=== PATIENT | male | born 1940 | race Caucasian/White ===

== ENCOUNTER 2017-07-31 10:41 | Emergency (ER) | payer MEDICARE, BC ==
[2017-07-31] MEDS ORDERED: Sodium Chloride 0.9% 10 ML Syringe FLUSH PRN (10:53)
[2017-07-31] MEDS ORDERED: HYDROmorphone 1 MG/ML Syringe IVPUSH ONE (10:54)
[2017-07-31] MEDS ORDERED: Ondansetron 4 MG/2 ML SDV IV ONE (11:21)
[2017-07-31 11:33] LABS: CHLORIDE,CL 99 mmol/L (101-111); SODIUM,NA 136 mmol/L (135-145)
[2017-07-31] MEDS ORDERED: Iopamidol 612 MG/ML 100 ML Bottle IVPUSH ONE (11:44)
--- NOTE | 2017-07-31 12:02 | EDM.PDOC ---
ED HPI GENERAL MEDICAL PROBLEM - General Chief Complaint: Chest Pain Stated Complaint: SHARP PAIN R SIDE. [phone] Time Seen by Provider: 07/31/17 10:45 Source of Information: Reports: Patient, Family, RN, RN Notes Reviewed History Limitations: Reports: No Limitations - History of Present Illness INITIAL COMMENTS - FREE TEXT/NARRATIVE: Pt presents to the ER with his with c/o severe right upper quadrant pain. He states he awoke abruptly about midnight with the sharp pain which he rates a 10/10. He denies recent fever, N/V/D. He states he is always cold. He states he has a chronic cough as he is a smoker. Pt states he still has his gallbladder and appendix. Onset: Today, Sudden Onset Time: 00:00 Location: Reports: Chest, Abdomen Quality: Reports: Stabbing, Throbbing Severity: Severe Improves with: Reports: None Worsens with: Reports: Breathing, Movement Associated Symptoms: Reports: No Other Symptoms Right Lower Chest Pain Score (Numeric/FACES): 8 - Related Data Allergies Allergy/AdvReac Type Severity Reaction Status Date / Time No Known Allergies Allergy Verified 07/14/14 00:31 Home Meds: Home Meds Aspirin [Ecotrin] 81 mg PO 07/22/13 [History] Clopidogrel [Plavix] 75 mg PO 07/22/13 [History] Hydrochlorothiazide 25 mg PO DAILY 07/22/13 [History] Multivitamin with Minerals [Multiple Vitamin] 1 tab PO DAILY 07/22/13 [History] Nitroglycerin [Nitrostat] 0.4 mg SL 07/22/13 [History] Omeprazole [Prilosec] 20 mg PO 07/22/13 [History] Pravastatin [Pravachol] 20 mg PO BEDTIME 07/22/13 [History] Valsartan [Diovan] 160 mg PO DAILY 07/22/13 [History] Social & Family History - Tobacco Use Smoking Status *Q: Current Every Day Smoker Years of Tobacco use: 50 Second Hand Smoke Exposure: No - Alcohol Use Days Per Week of Alcohol Use: 4 - Recreational Drug Use Recreational Drug Use: No ED ROS GENERAL - Review of Systems Review Of Systems: ROS reveals no pertinent complaints other than HPI. ED EXAM, GI/ABD - Physical Exam Exam: See Below Exam Limited By: No Limitations General Appearance: Alert, WD/WN, Moderate Distress Eyes: Bilateral: Normal Appearance, EOMI Ears: Normal External Exam, Hearing Grossly Normal Nose: Normal Inspection Throat/Mouth: Normal Inspection, Normal Voice, No Airway Compromise Head: Atraumatic, Normocephalic Neck: Normal Inspection, Supple, Non-Tender, Full Range of Motion Respiratory/Chest: No Respiratory Distress, No Accessory Muscle Use, Decreased Breath Sounds, Crackles (bases bilaterally) Cardiovascular: Normal Peripheral Pulses, Regular Rate, Rhythm GI/Abdominal Exam: Normal Bowel Sounds, Guarding, Tender (right upper quadrant) (Male) Exam: Deferred Rectal (Males) Exam: Deferred Back Exam: Normal Inspection, Decreased Range of Motion (with pain) Extremities: Normal Inspection, Normal Range of Motion, Non-Tender, No Pedal Edema, Normal Capillary Refill Neurological: Alert, Oriented, Normal Cognition, Normal Gait, Normal Reflexes, No Motor/Sensory Deficits Psychiatric: Normal Affect, Normal Mood Skin Exam: Warm, Dry, Intact, Normal Color, No Rash Lymphatic: No Adenopathy Course - Vital Signs Last Recorded V/S: Last Vital Signs Temp 98.7 F 07/31/17 12:25 Pulse 65 07/31/17 12:25 Resp 16 07/31/17 12:25 BP 145/73 H 07/31/17 12:25 Pulse Ox 92 L 07/31/17 12:25 - Orders/Labs/Meds Orders: Active Orders 24 hr Category Date Time Status Peripheral IV Care [RC] . DIRECTED Care 07/31/17 10:54 Active Peripheral IV Insertion Adult [OM.PC] Stat Oth 07/31/17 10:53 Ordered Labs: Laboratory Tests 07/31/17 07/31/17 07/31/17 Range/Units 11:06 11:06 11:06 WBC 7.3 (5.0-10.0) 10^3/uL RBC 3.98 L (4.6-6.2) 10^6/uL Hgb 12.8 L (14.0-18.0) g/dL Hct 36.8 L (40.0-54.0) % MCV 92.5 D (80-100) fL MCH 32.2 (27.0-34.0) pg MCHC 34.8 (33.0-35.0) g/dL Plt Count 236 (150-450) 10^3/uL Neut % (Auto) 76.6 H (42.2-75.2) % Lymph % (Auto) 12.9 L (20.5-50.1) % Bacon % (Auto) 9.6 H (2-8) % Eos % (Auto) 0.6 L (1.0-3.0) % Baso % (Auto) 0.3 (0.0-1.0) % PT 8.7 L (9.0-12.0) SEC INR 0.9 (0.9-1.2) Sodium 136 (135-145) mmol/L Potassium 4.2 (3.6-5.0) mmol/L Chloride 99 L (101-111) mmol/L Carbon Dioxide 25.0 (21.0-31.0) mmol/L Anion Gap 16.2 BUN 19 H (7-18) mg/dL Creatinine 0.9 (0.6-1.3) mg/dL Est Cr Clr Drug Dosing 69.44 mL/min Estimated GFR (MDRD) > 60 BUN/Creatinine Ratio 21.11 Glucose 99 (74-105) mg/dL Lactic Acid (0.5-2.2) mmol/L Calcium 9.5 (8.4-10.2) mg/dl Total Bilirubin 0.7 (0.2-1.0) mg/dL AST 41 (10-42) IU/L ALT 24 (10-60) IU/L Alkaline Phosphatase 71 (42-121) IU/L Total Protein 7.1 (6.7-8.2) g/dl Albumin 4.5 (3.2-5.5) g/dl Globulin 2.6 Albumin/Globulin Ratio 1.73 07/31/ Range/Units 11:06 WBC (5.0-10.0) 10^3/uL RBC (4.6-6.2) 10^6/uL Hgb (14.0-18.0) g/dL Hct (40.0-54.0) % MCV (80-100) fL MCH (27.0-34.0) pg MCHC (33.0-35.0) g/dL Plt Count (150-450) 10^3/uL Neut % (Auto) (42.2-75.2) % Lymph % (Auto) (20.5-50.1) % Bacon % (Auto) (2-8) % Eos % (Auto) (1.0-3.0) % Baso % (Auto) (0.0-1.0) % PT (9.0-12.0) SEC INR (0.9-1.2) Sodium (135-145) mmol/L Potassium (3.6-5.0) mmol/L Chloride (101-111) mmol/L Carbon Dioxide (21.0-31.0) mmol/L Anion Gap BUN (7-18) mg/dL Creatinine (0.6-1.3) mg/dL Est Cr Clr Drug Dosing mL/min Estimated GFR (MDRD) BUN/Creatinine Ratio Glucose (74-105) mg/dL Lactic Acid 1.1 (0.5-2.2) mmol/L Calcium (8.4-10.2) mg/dl Total Bilirubin (0.2-1.0) mg/dL AST (10-42) IU/L ALT (10-60) IU/L Alkaline Phosphatase (42-121) IU/L Total Protein (6.7-8.2) g/dl Albumin (3.2-5.5) g/dl Globulin Albumin/Globulin Ratio Meds: Medications Discontinued Medications Generic Name Dose Route Start Last Admin Trade Name Freq PRN Reason Stop Dose Admin Hydromorphone HCl 0.5 mg 07/31/17 10:54 07/31/17 11:21 Dilaudid IVPUSH 07/31/17 10:55 0.5 mg ONETIME ONE Administration Iopamidol 100 ml 07/31/17 11:44 07/31/17 12:06 Isovue-300 (61%) IVPUSH 07/31/17 11:45 100 ml ONETIME ONE Administration Ondansetron HCl 4 mg 07/31/17 11:21 07/31/17 11:28 Zofran IV 07/31/17 11:22 4 mg ONETIME ONE Administration Sodium Chloride 10 ml 07/31/17 10:53 07/31/17 11:22 Saline Flush FLUSH 10 ml ASDIRECTED PRN Administration Keep Vein Open - Radiology Interpretation Free Text/Narrative:: CT of abdomen/chest/pelvis w/ contrast: 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 Sigmoid diverticulosis. Bilateral renal cysts. Fatty liver. RLL atelectasis. No CT chest sbnormality or acute new intraperitoneal abnormality since Jul 2012 exam See rad report Departure - Departure Time of Disposition: 14:10 Disposition: Home, Self-Care 01 Condition: Fair Clinical Impression: Diverticulitis, Atelectasis of right lung - Discharge Information Instructions: Diverticulitis, [id number], Atelectasis, Adult, Diverticulosis Referrals: Alix Payne PA [Primary Care Provider] - Forms: ED Department Discharge Additional Instructions: Splint the right side with movement Cough and deep breathe as often as possible. RX: Cipro and Metronidazole Make an appointment to see Dr. Norris Low residue diet, drink plenty of fluids - My Orders Last 24 Hours: My Active Orders 07/31/17 10:53 Peripheral IV Insertion Adult [OM.PC] Stat 07/31/17 10:54 Peripheral IV Care [RC] . DIRECTED - Assessment/Plan Last 24 Hours: My Active Orders 07/31/17 10:53 Peripheral IV Insertion Adult [OM.PC] Stat 07/31/17 10:54 Peripheral IV Care [RC] . DIRECTED
--- NOTE | 2017-07-31 13:30 | CT ---
CLINICAL HISTORY: 77-year-old hypertensive 155 pound male smoker with severe right chest and upper ab dominal pain reported on previous CT scan abdomen July 2012 to have "multilevel lumbar disc disea se, benign cysts lower pole both kidneys, sigmoid diverticulosis and prostatic calcifications". SCAN TECHNIQUE: Volume acquisition of data from the chest, abdomen and pelvis obtained during/after t he intravenous administration 100 cc nonionic Isovue contrast (3 cc/s via injector) while the patient was lying supine on the Siemens multislice CT scanner [facility]. All data archived in the PACS system for storage, reformatting and study. INTERPRETATION: 1. Multilevel lower cervical, lower thoracic and mid/lower lumbar disc disease with associated hypert rophic arthritic changes. No pathologic skeletal lesion, fracture or spondylolisthesis. Radicular brittney n? No right rib fractures or pathologic skeletal lesion. 2. Peribronchial "cuffing", generalized mild air trapping, and symmetric prominence of the proximal p ulmonary artery segments characteristic of reactive airway disease and possible early pulmonary arter y hypertension. Atelectasis posteriorly RLL. 3. Normal cardiac silhouette and thoracic aorta. No pericardial effusion. No alveolar edema or pleur al effusions. 4. Fatty liver. No intrahepatic mass lesion. Normal gallbladder, stomach, spleen, atrophic pancreas a nd adrenal glands. 5. Solitary 2.8 cm diameter lower pole cyst right kidney; larger 3.3 cm diameter lower pole cyst cont ralateral left kidney (another 1.8 cm diameter posterior midpole cortical cyst left kidney). No signs of nephrolithiasis or obstructive uropathy. 6. Inhomogeneously dense prostate gland with irregular margins and multiple calcifications. 7. Sigmoid diverticulosis. 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 Sigmoid diverticulosis. Bilateral nisha l cysts. Fatty liver. RLL atelectasis. No CT chest abnormality or acute new intraperitoneal abnormali ty since July 2012 exam.
[2017-07-31 14:36] VITALS: BP 145/73
== END 2017-07-31 14:51 | disposition home or self-care (01) ==
LOC: DL.ED 10:41
DX: K57.32 Diverticulitis of large intestine without perforation or abscess without bleeding (principal); J98.11 Atelectasis; F17.200 Nicotine dependence, unspecified, uncomplicated; Z79.82 Long term (current) use of aspirin; Z79.02 Long term (current) use of antithrombotics/antiplatelets; Z79.899 Other long term (current) drug therapy
CPT/HCPCS: 36415; 71260; 74177; 80053; 83605; 85025; 85610; 96374; 96375; 99285; J1170; J2405; J7050; Q9967; 99284

== ENCOUNTER 2018-03-30 17:31 | Inpatient (IN) | payer MEDICARE, BC ==
[2018-03-30] MEDS ORDERED: cefTRIAXone 1 GM Vial IVPUSH SCH (18:00)
[2018-03-30] MEDS ORDERED: Magnesium Hydroxide 400 MG/5 ML Susp 30 ML Cup PO PRN (18:25)
[2018-03-30] MEDS ORDERED: Acetaminophen 325 MG Tab PO PRN (18:25)
[2018-03-30] MEDS ORDERED: Docusate Sodium 100 MG Cap PO PRN (18:25)
--- NOTE | 2018-03-30 19:09 | PCM.HP ---
H&P History of Present Illness - General Date of Service: 03/30/18 Admit Problem/Dx: Admission Diagnosis/Problem Admission Diagnosis/Problem UTI, Urinary tract infectious disease Source of Information: Patient History Limitations: Reports: No Limitations - History of Present Illness Initial Comments - Free Text/Narative: Patient is 77 y/o M with PMH of HTN, HLD who was transferred from the clinic because of UTI. Patient presented with dysuria, increased urinary frequency, chills. Labs wbc of 17 with left shift, UA suggestive of UTI. CT abdomen showed punctate calcification in the prostate gland which is inhomogeneously dense and associated with uniformly thick bladder wall suggesting chronic outlet obstruction. He was sent for admission. Patient at this time denies any other symptoms apart from above. No nausea, vomiting. He denies hesitancy, incomplete bladder emptying. Onset of Symptoms: Reports: Gradual Duration of Symptoms: Reports: Day(s): Location: Reports: Pelvis Quality: Reports: Burning Improves with: Reports: None Worsens with: Reports: None Associated Symptoms: Reports: Fever/Chills - Related Data Allergies/Adverse Reactions: Allergies Allergy/AdvReac Type Severity Reaction Status Date / Time acetaminophen [From Percocet] Allergy Nausea and Verified 03/30/18 17:52 Vomiting oxycodone [From Percocet] Allergy Nausea and Verified 03/30/18 17:52 Vomiting Home Medications: Home Meds Clopidogrel [Plavix] 75 mg PO DAILY 07/22/13 [History] Multivitamin with Minerals [Multiple Vitamin] 1 tab PO DAILY 07/22/13 [History] Omeprazole [Prilosec] 20 mg PO DAILY 07/22/13 [History] Pravastatin [Pravachol] 20 mg PO BEDTIME 07/22/13 [History] hydroCHLOROthiazide [Hydrochlorothiazide] 12.5 mg PO DAILY 07/22/13 [History] Losartan [Cozaar] 50 mg PO DAILY 03/30/18 [History] Sildenafil Citrate [Sildenafil] 100 mg PO ASDIRECTED PRN 03/30/18 [History] Past Medical History HEENT History: Reports: Impaired Vision Cardiovascular History: Reports: CAD, High Cholesterol, Hypertension, [place] Respiratory History: Reports: COPD Gastrointestinal History: Reports: Diverticulosis Genitourinary History: Reports: BPH, UTI, Recurrent, Other (See Below) Other Genitourinary History: Erectile Dysfunctions Musculoskeletal History: Reports: Arthritis, Back Pain, Chronic Neurological History: Reports: CVA - Infectious Disease History Infectious Disease History: Reports: Measles, Mumps, Rubella - Past Surgical History HEENT Surgical History: Reports: None Cardiovascular Surgical History: Reports: None Respiratory Surgical History: Reports: None GI Surgical History: Reports: Colonoscopy Musculoskeletal Surgical History: Reports: Other (See Below) Other Musculoskeletal Surgeries/Procedures:: back surgery Social & Family History - Family History Cardiac: Reports: CAD, Heart Failure - Tobacco Use Smoking Status *Q: Current Every Day Smoker Years of Tobacco use: 50 Packs/Tins Daily: 1 - Caffeine Use Caffeine Use: Reports: Coffee - Alcohol Use Days Per Week of Alcohol Use: 3 Number of Drinks Per Day: 1 Total Drinks Per Week: 3 - Recreational Drug Use Recreational Drug Use: No H&P Review of Systems - Review of Systems: Review Of Systems: See Below General: Reports: No Symptoms HEENT: Reports: No Symptoms Pulmonary: Reports: No Symptoms Cardiovascular: Reports: No Symptoms Gastrointestinal: Reports: No Symptoms Genitourinary: Reports: Dysuria, Frequency Musculoskeletal: Reports: No Symptoms Skin: Reports: No Symptoms Psychiatric: Reports: No Symptoms Neurological: Reports: No Symptoms Hematologic/Lymphatic: Reports: No Symptoms Immunologic: Reports: No Symptoms Exam - Exam Exam: See Below - Vital Signs Vital Signs: Last Vital Signs Temp 99.1 F 03/30/18 18:02 Pulse 113 H 03/30/18 18:02 Resp 20 03/30/18 18:02 BP 145/68 H 03/30/18 18:02 Pulse Ox 98 03/30/18 18:02 Weight: 149 lb 3.2 oz - Exam Quality Assessment: DVT Prophylaxis General: Alert, Oriented, Cooperative HEENT: Conjunctiva Clear Neck: Supple, Trachea Midline, 2 Lungs: Clear to Auscultation, Normal Respiratory Effort Cardiovascular: Regular Rate, Regular Rhythm GI/Abdominal Exam: Normal Bowel Sounds, Soft, Non-Tender, No Organomegaly, No Distention, No Abnormal Bruit, No Mass, Pelvis Stable (Male) Exam: No Hernia, Normal Inspection, Normal Prostate, Circumcised Rectal (Males) Exam: Normal Exam, Normal Rectal Tone, Prostate Normal Back Exam: Normal Inspection, Full Range of Motion, NT Extremities: Normal Inspection Skin: Warm, Dry, Intact Neurological: Cranial Nerves Intact, Reflexes Equal Bilateral Neuro Extensive - Mental Status: Alert, Oriented x3, Normal Mood/Affect, Normal Cognition Neuro Extensive - Motor, Sensory, Reflexes: CN II-XII Intact, Normal Gait, Normal Reflexes Psychiatric: Alert, Normal Affect, Normal Mood - Patient Data Result Diagrams: 03/30/18 19:00 03/30/18 19:00 - Problem List (1) UTI (urinary tract infection) SNOMED Code(s): 94302355 ICD Code: N39.0 - URINARY TRACT INFECTION, SITE NOT SPECIFIED Status: Acute Current Visit: Yes (2) BPH (benign prostatic hyperplasia) SNOMED Code(s): 128757100 ICD Code: N40.0 - BENIGN PROSTATIC HYPERPLASIA WITHOUT LOWER URINRY TRACT SYMP Status: Acute Current Visit: Yes Problem List Initiated/Reviewed/Updated: Yes Orders Last 24hrs: Active Orders 24 hr Category Date Time Status Patient Status [ADT] Routine ADT 03/30/18 18:25 Active Antiembolic Devices [RC] .Routine Care 03/30/18 18:28 Active Intake and Output [RC] QSHIFT Care 03/30/18 18:27 Active Notify Provider Vital Signs [RC] ASDIRECTED Care 03/30/18 18:27 Active Up With Assistance [RC] ASDIRECTED Care 03/30/18 18:25 Active VTE/DVT Education [RC] PER UNIT ROUTINE Care 03/30/18 18:28 Active Vital Signs [RC] Q4H Care 03/30/18 18:25 Active Regular Diet [DIET] Diet 03/30/18 Breakfast Active BASIC METABOLIC PANEL,BMP [CHEM] Routine Lab 03/30/18 18:25 Ordered CBC WITH AUTO DIFF [HEME] Routine Lab 03/30/18 18:25 Ordered CULTURE BLOOD [BC] Stat Lab 03/30/18 18:37 Ordered CULTURE BLOOD [BC] Stat Lab 03/30/18 18:37 Ordered CULTURE URINE [RM] Routine Lab 03/30/18 18:37 Ordered CULTURE URINE [RM] Routine Lab 03/30/18 18:41 Ordered INR,PT,PROTHROMBIN TIME [COAG] Routine Lab 03/30/18 18:25 Ordered LACTIC ACID [CHEM] Stat Lab 03/30/18 19:08 Ordered PTT,PARTIAL THROMBOPLSTIN TIME [COAG] Routine Lab 03/30/18 18:25 Ordered UA W/MICROSCOPIC [URIN] Routine Lab 03/30/18 18:38 Ordered Acetaminophen [Tylenol] Med 03/30/18 18:25 Active 650 mg PO Q4H PRN Docusate Sodium [Colace] Med 03/30/18 18:25 Active 100 mg PO DAILY PRN Heparin Sodium Med 03/30/18 18:30 Pending 5,000 units SUBCUT Q12H Magnesium Hydroxide [Milk of Magnesia] Med 03/30/18 18:25 Active 30 ml PO BID PRN cefTRIAXone [Rocephin] Med 03/30/18 18:00 Active 1 gm IVPUSH Q24H Blood Culture x2 Reflex Set [OM.PC] Stat Oth 03/30/18 18:37 Ordered DVT/VTE Prophylaxis Reflex [OM.PC] Routine Oth 03/30/18 18:25 Ordered Medication Orders Acetaminophen (Tylenol) 650 mg PO Q4H PRN PRN Reason: Pain (mild 1-3 )/fever Ceftriaxone Sodium (Rocephin) 1 gm IVPUSH Q24H PALLAVI Docusate Sodium (Colace) 100 mg PO DAILY PRN PRN Reason: Constipation Heparin Sodium (Porcine) (Heparin Sodium) 5,000 units SUBCUT Q12H PALLAVI Magnesium Hydroxide (Milk Of Magnesia) 30 ml PO BID PRN PRN Reason: Constipation Assessment/Plan Comment:: UTI -IV ceftriaxone -uirne cx -blood cx -monitor for fever spike HTN -continue home meds HLD -continue home med BPH -CT abdomen showed punctate calcification in the prostate gland which is inhomogeneously dense and associated with uniformly thick bladder wall suggesting chronic outlet obstruction -send for PSA -outpatient urology consult -[facility] Flomax Cardiac diet Full code
[2018-03-30 19:40] LABS: ANION GAP 14.3; CHLORIDE,CL 92 mmol/L (101-111); SODIUM,NA 126 mmol/L (135-145)
[2018-03-30] MEDS: Pravastatin 20 MG Tab PO SCH (21:53)
[2018-03-30] MEDS: Heparin Sodium 5,000 Units/ML Vial SUBCUT SCH (21:53)
[2018-03-31] MEDS ORDERED: Omeprazole 20 MG Cap.CR PO SCH (06:00)
[2018-03-31] MEDS ORDERED: Potassium Chloride 10 MEQ in Premix Bag 1 BAG IV ONE (08:16)
[2018-03-31] MEDS ORDERED: Nicotine 14 MG/24 Hr Patch TRDERM ONE (08:19)
[2018-03-31] MEDS: Losartan 50 MG Tab PO SCH (08:29)
[2018-03-31] MEDS: Clopidogrel 75 MG Tab PO SCH (08:29)
[2018-03-31] MEDS: Multivitamins, Therapeutic with Minerals Tab PO SCH (08:29)
[2018-03-31] MEDS: Hydrochlorothiazide 25 MG Tab PO SCH (08:30)
--- NOTE | 2018-03-31 08:57 | PCM.PN ---
- General Info Date of Service: 03/31/18 Admission Dx/Problem (Free Text): Admission Diagnosis/Problem Admission Diagnosis/Problem UTI, Urinary tract infectious disease Subjective Update: Patient is 77 y/o M with PMH of HTN, HLD admitted for UTI. He was started on IV ceftriaxone. This morning still reports dysuria. Tmax overnight was 101.6F. Denies N/V. No other complaints. Microdata review: blood cx: Gram satin of aerobic bottle: pos for gram positive cocci in clusters. ? contamination. Urine cx positive gram negative rods. Functional Status: Reports: Pain Controlled - Review of Systems General: Reports: No Symptoms HEENT: Reports: No Symptoms Pulmonary: Reports: No Symptoms Cardiovascular: Reports: No Symptoms Gastrointestinal: Reports: No Symptoms Genitourinary: Reports: Dysuria, Frequency Musculoskeletal: Reports: No Symptoms Skin: Reports: No Symptoms Neurological: Reports: No Symptoms Psychiatric: Reports: No Symptoms - Patient Data Vitals - Most Recent: Last Vital Signs Temp 100 F 03/31/18 07:00 Pulse 83 03/31/18 07:00 Resp 20 03/31/18 07:00 BP 131/69 03/31/18 08:29 Pulse Ox 97 03/31/18 07:00 Weight - Most Recent: 149 lb 3.2 oz I&O - Last 24 Hours: Intake & Output 03/30/18 03/31/18 03/31/18 22:59 06:59 14:59 Intake Total 1075 Output Total 50 Balance 1025 Lab Results Last 24 Hours: Laboratory Results - last 24 hr 03/30/18 03/30/18 03/30/18 Range/Units 19:00 19:00 19:00 WBC 17.0 H (5.0-10.0) 10^3/uL RBC 3.98 L (4.6-6.2) 10^6/uL Hgb 12.7 L (14.0-18.0) g/dL Hct 36.1 L (40.0-54.0) % MCV 90.7 (80-100) fL MCH 31.9 (27.0-34.0) pg MCHC 35.2 H (33.0-35.0) g/dL Plt Count 222 (150-450) 10^3/uL Neut % (Auto) 90.0 H (42.2-75.2) % Lymph % (Auto) 4.0 L (20.5-50.1) % [place] % (Auto) 5.9 (2-8) % Eos % (Auto) 0.0 L (1.0-3.0) % Baso % (Auto) 0.1 (0.0-1.0) % PT 9.3 (9.0-12.0) SEC INR 0.9 (0.9-1.2) APTT 29.3 (22.0-34.0) SEC Sodium 126 L D (135-145) mmol/L Potassium 3.3 L (3.6-5.0) mmol/L Chloride 92 L (101-111) mmol/L Carbon Dioxide 23.0 (21.0-31.0) mmol/L Anion Gap 14.3 BUN 17 (7-18) mg/dL Creatinine 1.1 (0.6-1.3) mg/dL Est Cr Clr Drug Dosing 54.69 mL/min Estimated GFR (MDRD) > 60 Glucose 186 H (74-105) mg/dL Lactic Acid (0.5-2.2) mmol/L Calcium 8.9 (8.4-10.2) mg/dl 03/30/18 03/31/18 Range/Units 19:00 08:40 WBC 14.7 H (5.0-10.0) 10^3/uL RBC 3.88 L (4.6-6.2) 10^6/uL Hgb 12.3 L (14.0-18.0) g/dL Hct 35.1 L (40.0-54.0) % MCV 90.5 (80-100) fL MCH 31.7 (27.0-34.0) pg MCHC 35.0 (33.0-35.0) g/dL Plt Count 189 (150-450) 10^3/uL Neut % (Auto) (42.2-75.2) % Lymph % (Auto) (20.5-50.1) % [place] % (Auto) (2-8) % Eos % (Auto) (1.0-3.0) % Baso % (Auto) (0.0-1.0) % PT (9.0-12.0) SEC INR (0.9-1.2) APTT (22.0-34.0) SEC Sodium (135-145) mmol/L Potassium (3.6-5.0) mmol/L Chloride (101-111) mmol/L Carbon Dioxide (21.0-31.0) mmol/L Anion Gap BUN (7-18) mg/dL Creatinine (0.6-1.3) mg/dL Est Cr Clr Drug Dosing mL/min Estimated GFR (MDRD) Glucose (74-105) mg/dL Lactic Acid 1.2 (0.5-2.2) mmol/L Calcium (8.4-10.2) mg/dl Noah Results Last 24 Hours: Microbiology 03/30/18 19:05 Aerobic Blood Culture - Preliminary Blood - Venous - Lab Draw Med Orders - Current: Current Medications Acetaminophen (Tylenol) 650 mg PO Q4H PRN PRN Reason: Pain (mild 1-3 )/fever Last Admin: 03/30/18 23:38 Dose: 650 mg Ceftriaxone Sodium (Rocephin) 1 gm IVPUSH Q24H [facility] Last Admin: 03/30/18 19:11 Dose: 1 gm Clopidogrel Bisulfate (Plavix) 75 mg PO DAILY [facility] Last Admin: 03/31/18 08:29 Dose: 75 mg Docusate Sodium (Colace) 100 mg PO DAILY PRN PRN Reason: Constipation Heparin Sodium (Porcine) (Heparin Sodium) 5,000 units SUBCUT Q12H [facility] Last Admin: 03/30/18 21:53 Dose: Not Given Hydrochlorothiazide (Hydrochlorothiazide) 12.5 mg PO DAILY [facility] Last Admin: 03/31/18 08:30 Dose: 12.5 mg Potassium Chloride 10 meq/ (Premix) 100 mls @ 100 mls/hr IV ONETIME ONE Stop: 03/31/18 09:15 Losartan Potassium (Cozaar) 50 mg PO DAILY [facility] Last Admin: 03/31/18 08:29 Dose: 50 mg Magnesium Hydroxide (Milk Of Magnesia) 30 ml PO BID PRN PRN Reason: Constipation Multivitamins/Minerals (Vitamins And Minerals) 1 tab PO DAILY [facility] Last Admin: 03/31/18 08:29 Dose: 1 tab Pantoprazole Sodium (Protonix) 40 mg PO BEDTIME [facility] Pravastatin Sodium (Pravachol) 20 mg PO BEDTIME [facility] Last Admin: 03/30/18 21:53 Dose: 20 mg Senna/Docusate Sodium (Senna Plus) 1 tab PO BEDTIME PRN PRN Reason: Constipation Discontinued Medications Nicotine (Habitrol) 14 mg TRDERM ONETIME ONE Stop: 03/31/18 08:20 Omeprazole (Omeprazole) 20 mg PO ACBREAKFAST PALLAVI - Exam Quality Assessment: DVT Prophylaxis General: Alert, Oriented HEENT: Pupils Equal, Pupils Reactive, EOMI, Mucous Membr. Moist/[place] Neck: Supple Lungs: Clear to Auscultation, Normal Respiratory Effort Cardiovascular: Regular Rate, Regular Rhythm GI/Abdominal Exam: Normal Bowel Sounds, Soft, Non-Tender, No Organomegaly, No Distention, No Abnormal Bruit, No Mass, Pelvis Stable (Male) Exam: No Hernia, Normal Inspection, Normal Prostate, Circumcised Back Exam: Normal Inspection, Full Range of Motion Extremities: Normal Inspection, Normal Range of Motion, Non-Tender, No Pedal Edema, Normal Capillary Refill Skin: Warm, Dry, Intact Wound/Incisions: Healing Well Neurological: No New Focal Deficit Psy/Mental Status: Alert, Normal Affect, Normal Mood - Problem List & Annotations (1) UTI (urinary tract infection) SNOMED Code(s): 84660241 Code(s): N39.0 - URINARY TRACT INFECTION, SITE NOT SPECIFIED Status: Acute Current Visit: Yes (2) BPH (benign prostatic hyperplasia) SNOMED Code(s): 630023225 Code(s): N40.0 - BENIGN PROSTATIC HYPERPLASIA WITHOUT LOWER URINRY TRACT SYMP Status: Acute Current Visit: Yes - Problem List Review Problem List Initiated/Reviewed/Updated: Yes - My Orders Last 24 Hours: My Active Orders 03/30/18 18:00 cefTRIAXone [Rocephin] 1 gm IVPUSH Q24H 03/30/18 18:25 Patient Status [ADT] Routine Up With Assistance [RC] ASDIRECTED Vital Signs [RC] 07,11,15,19,23,03 Acetaminophen [Tylenol] 650 mg PO Q4H PRN Docusate Sodium [Colace] 100 mg PO DAILY PRN Magnesium Hydroxide [Milk of Magnesia] 30 ml PO BID PRN DVT/VTE Prophylaxis Reflex [OM.PC] Routine 03/30/18 18:27 Intake and Output [RC] QSHIFT Notify Provider Vital Signs [RC] ASDIRECTED 03/30/18 18:28 Antiembolic Devices [RC] .Routine VTE/DVT Education [RC] PER UNIT ROUTINE 03/30/18 18:30 CULTURE URINE [RM] Routine 03/30/18 18:37 Blood Culture x2 Reflex Set [OM.PC] Stat 03/30/18 19:00 CULTURE BLOOD [BC] Stat PSA-EIA [REF] Routine 03/30/18 19:05 CULTURE BLOOD [BC] Stat 03/30/18 21:00 Heparin Sodium 5,000 units SUBCUT Q12H Pravastatin [Pravachol] 20 mg PO BEDTIME 03/31/18 08:16 Potassium Chloride [KCl 10 MEQ in Water 100 ML] 10 meq Premix Bag 1 bag IV ONETIME 03/31/18 08:19 Docusate Sodium/Sennosides [Senna Plus] 1 tab PO BEDTIME PRN 03/31/18 08:40 BASIC METABOLIC PANEL,BMP [CHEM] Routine 03/31/18 09:00 Clopidogrel [Plavix] 75 mg PO DAILY Losartan [Cozaar] 50 mg PO DAILY Multivitamins/Minerals [Vitamins and Minerals] 1 tab PO DAILY hydroCHLOROthiazide 12.5 mg PO DAILY 03/31/18 21:00 Pantoprazole [ProTONIX] 40 mg PO BEDTIME 03/31/18 Breakfast Heart Healthy Diet [DIET] - Plan Plan:: Gram negative UTI -IV ceftriaxone 1g bid -follow uirne cx sensitivity -blood cx -monitor for fever spike HTN -continue home meds HLD -continue home med BPH -CT abdomen showed punctate calcification in the prostate gland which is inhomogeneously dense and associated with uniformly thick bladder wall suggesting chronic outlet obstruction -send for PSA -outpatient urology consult -vera pardo Flomax Cardiac diet Full code
[2018-03-31 09:09] LABS: ANION GAP 15.4; CHLORIDE,CL 93 mmol/L (101-111); SODIUM,NA 128 mmol/L (135-145)
[2018-03-31] MEDS ORDERED: Sodium Chloride 0.9% 1,000 ML IV SCH (09:15)
[2018-03-31] MEDS: Heparin Sodium 5,000 Units/ML Vial SUBCUT SCH ×2 (09:24→21:35)
[2018-03-31] MEDS: Phenazopyridine 95 MG Tab PO SCH ×2 (17:14→21:27)
[2018-03-31] MEDS: Nicotine 14 MG/24 Hr Patch TRDERM SCH (17:14)
[2018-03-31] MEDS ORDERED: Sodium Chloride 0.9% with KCl 1,000 ML IV SCH (17:45)
[2018-03-31] MEDS ORDERED: cefTRIAXone 1 GM Vial IVPUSH SCH (20:00)
[2018-03-31] MEDS ORDERED: Pantoprazole 40 MG Tab.CR PO SCH (21:00)
[2018-03-31] MEDS: Pravastatin 20 MG Tab PO SCH (21:27)
[2018-03-31] MEDS: cefTRIAXone 1 GM Vial IVPUSH SCH (21:29)
[2018-04-01 07:23] VITALS: BP 131/71
[2018-04-01] MEDS: Phenazopyridine 95 MG Tab PO SCH (08:49)
[2018-04-01] MEDS: Hydrochlorothiazide 25 MG Tab PO SCH (08:49)
[2018-04-01] MEDS: Multivitamins, Therapeutic with Minerals Tab PO SCH (08:49)
[2018-04-01] MEDS: Clopidogrel 75 MG Tab PO SCH (08:50)
[2018-04-01] MEDS: Nicotine 14 MG/24 Hr Patch TRDERM SCH (08:50)
[2018-04-01] MEDS: Heparin Sodium 5,000 Units/ML Vial SUBCUT SCH (08:51)
[2018-04-01] MEDS: Losartan 50 MG Tab PO SCH (08:52)
--- NOTE | 2018-04-01 09:11 | PN ---
DATE: 03/31/2018 SUBJECTIVE: Mr. Turner is a 77-year-old gentleman who was admitted with fever and leukocytosis and was found to have a urinary tract infection. He stated that he first became ill on 03/29/2018, felt fevered and cold. He later developed some dysuria and was seen at the clinic. He was referred for admission. At the time of admission, he was found to have an elevated temperature initially of 99, then 101.6. Family stated it had been higher at home. Remainder of vital signs were stable. Blood pressure was normal. He was slightly tachycardic on admission at 113, but since that time, heart rate has been normal. Labs at the time of admission showed an elevated white count of 17,000 with a left shift. Sodium 126, potassium 3.3. Lactic acid was normal at 1.2. Repeat labs this morning show improvement in the white count down to 14,700. No differential was performed. Hemoglobin and hematocrit are stable at 12 and 35. Sodium improved to 128, potassium 3.4. BUN and creatinine remained within normal limits. The admitting physician had ordered a PSA, and this returns elevated at 7.7 (0.0 to 4.0). A review of Mr. Turner's Alt chart shows that PSA was most recently drawn in 08/2017 and was normal at 1.28 (0.13 to 4.0). The elevation in his PSA at this time may be related to his urinary tract infection, and these results should be used cautiously. Review of his vital signs showed that he has had a temperature of about 99 since the time of admission. Blood pressure is stable. He has been urinating. Unfortunately, he has been emptying the urine, and staff was unable to calculate a volume. They did do bladder scans, however; and residual volumes were 24 mL, 54 mL, and 72 mL eliminating urinary retention. He did have some dysuria today, and he was started on Pyridium for comfort. Appetite is only fair, but he does not seem to food either, and there was evidence he has had some food from outside that he had eaten. On exam, he is lying comfortably in bed. His and daughter were present. He is in good spirits. I have known Mr. Turner for a number of years, and he appeared to be himself. He stated he was feeling better. He denied any fever or chills. No rigors. No abdominal or flank pain. No dysuria or hematuria. Overall stating, he was feeling better. He was eager to be discharged. 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 We encouraged him to wait until the results of his blood cultures and final urine culture are available tomorrow. OBJECTIVE: General: On exam, he is lying comfortably in bed. Vital Signs: Blood pressure 121/68, pulse 76, respiratory rate 20, oxygen saturation 98% on room air, and his temperature is 99.4. HEENT: Unremarkable. ENT was clear. Chest: Clear. Heart: Regular. Abdomen: Soft, benign, and nontender. No tenderness or pain over the suprapubic area. No flank pain on percussion. Skin: Warm. Dry to touch. Temperature remained as noted slightly elevated at 99.5. IMPRESSION: A 77-year-old gentleman who has urinary tract infection. Preliminary urine culture shows gram-negative rods. This will most likely be Escherichia coli, and final culture and sensitivity should be out tomorrow. PLAN: 1. We will await the final results of the urine culture. 2. At the time of admission, 1 set of blood cultures was drawn. The aerobic bottles showed gram-positive cocci in clusters (contamination?). The anaerobic bottle showed no growth. Another set of blood cultures has been drawn, and they should be ready tomorrow. If the remaining blood cultures are negative, this will help move forward with the discharge plan. 3. Hypokalemia, now corrected at 4.1. 4. Hyponatremia, now 132. A review of [facility] chart shows that over the last year, he has had some chronic hyponatremia with values ranging from 129 on the day of his admission to 135. 5. Elevated PSA. The significance of the elevated PSA is unclear in the phase of this urinary tract infection. Review of his clinic chart shows 1, 2, 3, 4 PSA results over the last 4 years, all of which have been in the normal range. We will continue present management. Mr. Turner is open for discharge tomorrow. [facility] /[id number]
[2018-04-01] MEDS ORDERED: Magnesium Sulfate/D5W 2 GM in Premix Bag 1 BAG IV ONE (09:30)
[2018-04-01] MEDS: cefTRIAXone 1 GM Vial IVPUSH SCH (10:05)
--- NOTE | 2018-04-01 10:17 | PCM.DCSUM1 ---
Discharge Summary - Hospital Course Free Text/Narrative:: The patient is a 77-year-old gentleman who presented with fever The patient was noted to have a urinary tract infection. Urine culture grew Escherichia coli which was sensitive to ciprofloxacin and ceftriaxone. The patient was treated with IV ceftriaxone. The patient's leukocytosis has improved symptoms improved fever improved. The patient had the blood cultures grown which initially was reported as a possible gram-positive cocci but it turned out to be contaminant. Repeat blood cultures remain negative. The patient desires a discharge today. I will change the antibiotic to oral ciprofloxacin to continue for another 5 days. The patient will follow-up with her primary care physician early next week. Diagnosis: Stroke: No - Discharge Data Discharge Date: 04/01/18 Discharge Disposition: Home, Self-Care 01 Condition: Good - Patient Instructions Diet: Heart Healthy Diet Activity: As Tolerated - Discharge Plan *PRESCRIPTION DRUG MONITORING PROGRAM REVIEWED*: Not Applicable *COPY OF PRESCRIPTION DRUG MONITORING REPORT IN PATIENT EUN: Not Applicable Prescriptions/Med Rec: Ciprofloxacin HCl [Cipro] 250 mg PO BID #10 tablet Home Medications: Home Meds Clopidogrel [Plavix] 75 mg PO DAILY 07/22/13 [History] Multivitamin with Minerals [Multiple Vitamin] 1 tab PO DAILY 07/22/13 [History] Omeprazole [Prilosec] 20 mg PO DAILY 07/22/13 [History] Pravastatin [Pravachol] 20 mg PO BEDTIME 07/22/13 [History] hydroCHLOROthiazide [Hydrochlorothiazide] 12.5 mg PO DAILY 07/22/13 [History] Losartan [Cozaar] 50 mg PO DAILY 03/30/18 [History] Sildenafil Citrate [Sildenafil] 100 mg PO ASDIRECTED PRN 03/30/18 [History] Ciprofloxacin HCl [Cipro] 250 mg PO BID #10 tablet 04/01/18 [Rx] Referrals: Alix Payne PA [Primary Care Provider] - (early next week) - Discharge Summary/Plan Comment DC Time >30 min.: No - General Info Date of Service: 04/01/18 Functional Status: Reports: Pain Controlled, Tolerating Diet, Ambulating, Urinating (No significant urinary retention) - Review of Systems General: Denies: Fever, Weakness Pulmonary: Denies: Shortness of Breath Cardiovascular: Denies: Chest Pain Gastrointestinal: Denies: Abdominal Pain Genitourinary: Reports: Dysuria - Patient Data Vitals - Most Recent: Last Vital Signs Temp 36.8 C 04/01/18 07:21 Pulse 79 04/01/18 07:21 Resp 18 04/01/18 07:21 BP 131/71 04/01/18 08:52 Pulse Ox 97 04/01/18 07:21 Weight - Most Recent: 67.676 kg I&O - Last 24 hours: Intake & Output 03/31/18 04/01/18 04/01/18 22:59 06:59 14:59 Intake Total 120 940 Balance 120 940 Lab Results - Last 24 hrs: Laboratory Results - last 24 hr 03/30/18 04/01/18 04/01/18 Range/Units 19:00 06:20 06:20 WBC 7.6 (5.0-10.0) 10^3/uL Neutrophils % (Manual) 76 H (42-75) % Lymphocytes % (Manual) 14 L (20-50) % Monocytes % (Manual) 10 H (2-8) % Toxic Granulation 2+ moderate Sodium 132 L (135-145) mmol/L Potassium 4.1 (3.6-5.0) mmol/L Magnesium 1.1 L (1.8-2.5) mg/dL Prostate Specific Ag 7.7 H (0.0-4.0) ng/mL LUISANA Results - Last 24 hrs: Microbiology 03/30/18 18:30 Urine Culture - Final Urine, Clean Catch Escherichia Coli 03/30/18 19:05 Aerobic Blood Culture - Preliminary Blood - Venous - Lab Draw Anaerobic Blood Culture - Preliminary NO GROWTH AFTER 1 DAY 03/30/18 19:00 Aerobic Blood Culture - Preliminary Blood - Venous NO GROWTH AFTER 1 DAY Anaerobic Blood Culture - Preliminary NO GROWTH AFTER 1 DAY Med Orders - Current: Current Medications Acetaminophen (Tylenol) 650 mg PO Q4H PRN PRN Reason: Pain (mild 1-3 )/fever Last Admin: 03/30/18 23:38 Dose: 650 mg Ceftriaxone Sodium (Rocephin) 1 gm IVPUSH Q12HR [facility] Last Admin: 04/01/18 10:05 Dose: 1 gm Clopidogrel Bisulfate (Plavix) 75 mg PO DAILY [facility] Last Admin: 04/01/18 08:50 Dose: 75 mg Docusate Sodium (Colace) 100 mg PO DAILY PRN PRN Reason: Constipation Heparin Sodium (Porcine) (Heparin Sodium) 5,000 units SUBCUT Q12H [facility] Last Admin: 04/01/18 08:51 Dose: Not Given Hydrochlorothiazide (Hydrochlorothiazide) 12.5 mg PO DAILY [facility] Last Admin: 04/01/18 08:49 Dose: 12.5 mg Potassium Chloride/Sodium Chloride (Normal Saline With 40 Meq Kcl) 1,000 mls @ 75 mls/hr IV ASDIRECTED [facility] Last Admin: 03/31/18 18:21 Dose: 75 mls/hr Magnesium Sulfate/Dextrose 2 (gm/ Premix) 200 mls @ 100 mls/hr IV ONETIME ONE Stop: 04/01/18 11:29 Losartan Potassium (Cozaar) 50 mg PO DAILY [facility] Last Admin: 04/01/18 08:52 Dose: 50 mg Magnesium Hydroxide (Milk Of Magnesia) 30 ml PO BID PRN PRN Reason: Constipation Multivitamins/Minerals (Vitamins And Minerals) 1 tab PO DAILY [facility] Last Admin: 04/01/18 08:49 Dose: 1 tab Nicotine (Habitrol) 14 mg TRDERM DAILY [facility] Last Admin: 04/01/18 08:50 Dose: Not Given Pantoprazole Sodium (Protonix) 40 mg PO BEDTIME [facility] Last Admin: 03/31/18 21:27 Dose: 40 mg Phenazopyridine HCl (Urinary Pain Relief) 95 mg PO BID [facility] Last Admin: 04/01/18 08:49 Dose: 95 mg Pravastatin Sodium (Pravachol) 20 mg PO BEDTIME [facility] Last Admin: 03/31/18 21:27 Dose: 20 mg Senna/Docusate Sodium (Senna Plus) 1 tab PO BEDTIME PRN PRN Reason: Constipation Discontinued Medications Ceftriaxone Sodium (Rocephin) 1 gm IVPUSH Q24H [facility] Last Admin: 03/30/18 19:11 Dose: 1 gm Ceftriaxone Sodium (Rocephin) 1 gm IVPUSH Q24H [facility] Potassium Chloride 10 meq/ (Premix) 100 mls @ 100 mls/hr IV ONETIME ONE Stop: 03/31/18 09:15 Last Infusion: 03/31/18 18:25 Dose: Infused Sodium Chloride (Normal Saline) 1,000 mls @ 125 mls/hr IV ASDIRECTED [facility] Last Infusion: 03/31/18 18:25 Dose: Infused Nicotine (Habitrol) 14 mg TRDERM ONETIME ONE Stop: 03/31/18 08:20 Last Admin: 03/31/18 13:14 Dose: Not Given Omeprazole (Omeprazole) 20 mg PO ACBREAKFAST PALL[facility] - Exam General: Reports: Alert, Oriented Neck: Reports: Supple Lungs: Reports: Clear to Auscultation, Normal Respiratory Effort Cardiovascular: Reports: Regular Rate, Regular Rhythm GI/Abdominal Exam: Normal Bowel Sounds, Soft, Non-Tender Extremities: No Pedal Edema
== END 2018-04-01 11:50 | disposition home or self-care (01) | DRG 690 ==
LOC: UNDOADMIN 17:34 → DL.MS 17:34
PROVIDERS: ADMIT Student in an Organized Health Care Education/Training Program; ATTEND Student in an Organized Health Care Education/Training Program
DX: N39.0 Urinary tract infection, site not specified (principal); E87.1 Hypo-osmolality and hyponatremia; I10 Essential (primary) hypertension; E78.5 Hyperlipidemia, unspecified; I25.10 Atherosclerotic heart disease of native coronary artery without angina pectoris; N40.1 Benign prostatic hyperplasia with lower urinary tract symptoms; N13.8 Other obstructive and reflux uropathy; E78.00 Pure hypercholesterolemia, unspecified; E87.6 Hypokalemia; J44.9 Chronic obstructive pulmonary disease, unspecified; B96.20 Unspecified Escherichia coli [E. coli] as the cause of diseases classified elsewhere; R97.20 Elevated prostate specific antigen [PSA]; M19.90 Unspecified osteoarthritis, unspecified site; G89.29 Other chronic pain; M54.9 Dorsalgia, unspecified; K57.90 Diverticulosis of intestine, part unspecified, without perforation or abscess without bleeding; H54.7 Unspecified visual loss; F17.210 Nicotine dependence, cigarettes, uncomplicated; Z88.8 Allergy status to other drugs, medicaments and biological substances; Z79.899 Other long term (current) drug therapy; I25.2 Old myocardial infarction; Z79.02 Long term (current) use of antithrombotics/antiplatelets; Z86.73 Personal history of transient ischemic attack (TIA), and cerebral infarction without residual deficits
CPT/HCPCS: 36415; 80048; 83605; 83735; 84132; 84153; 84295; 85007; 85025; 85027; 85048; 85610; 85730; 87040; 87086; 87186; A9270-GY; J0696; J3475; J3480; J7030

== ENCOUNTER 2019-12-08 15:17 | Emergency (ER) | payer MEDICARE, BC ==
[2019-12-08] MEDS ORDERED: Acetaminophen/HYDROcodone 325-10 MG Tab PO ONE (15:18)
[2019-12-08 16:12] VITALS: BP 111/65; PULSE 81
--- NOTE | 2019-12-08 16:41 | EDM.PDOC ---
ED HPI GENERAL MEDICAL PROBLEM - General Chief Complaint: General Stated Complaint: SEVERE PAIN IN SIDE/HURTS TO URINATE Time Seen by Provider: 12/08/19 16:41 Source of Information: Reports: Patient, RN, RN Notes Reviewed History Limitations: Reports: No Limitations - History of Present Illness INITIAL COMMENTS - FREE TEXT/NARRATIVE: Patient presents to ER by POV stating that he fell last night sometime. Cannot remember. He thinks he fell. Has a bruise to the right lower rib cage area. Area is tender to touch. It hurts to breathe and move and wonders if he broke a rib. Onset: Unknown/Unsure Duration: Getting Worse Location: Reports: Abdomen (right side) Quality: Reports: Ache Severity: Moderate Improves with: Reports: None Worsens with: Reports: None Associated Symptoms: Reports: No Other Symptoms Right Lower Chest Pain Score (Numeric/FACES): 9 - Related Data Allergies Allergy/AdvReac Type Severity Reaction Status Date / Time acetaminophen [From Percocet] Allergy Nausea and Verified 12/08/19 16:14 Vomiting oxycodone [From Percocet] Allergy Nausea and Verified 12/08/19 16:14 Vomiting Home Meds: Home Meds Clopidogrel [Plavix] 75 mg PO DAILY 07/22/13 [History] Omeprazole [Prilosec] 20 mg PO DAILY 07/22/13 [History] Pravastatin [Pravachol] 20 mg PO BEDTIME 07/22/13 [History] levETIRAcetam [Levetiracetam ER] 500 mg PO BID 02/12/19 [History] Past Medical History HEENT History: Reports: Hard of Hearing, Impaired Vision Cardiovascular History: Reports: CAD, High Cholesterol, Hypertension, [place] Respiratory History: Reports: COPD Gastrointestinal History: Reports: Diverticulosis Genitourinary History: Reports: BPH, UTI, Recurrent, Other (See Below) Other Genitourinary History: Erectile Dysfunctions Musculoskeletal History: Reports: Arthritis, Back Pain, Chronic Neurological History: Reports: CVA - Infectious Disease History Infectious Disease History: Reports: Measles, Mumps, Rubella - Past Surgical History HEENT Surgical History: Reports: None Cardiovascular Surgical History: Reports: None Respiratory Surgical History: Reports: None GI Surgical History: Reports: Colonoscopy Musculoskeletal Surgical History: Reports: Other (See Below) Other Musculoskeletal Surgeries/Procedures:: back surgery Social & Family History - Family History Cardiac: Reports: CAD, Heart Failure - Tobacco Use Smoking Status *Q: Current Every Day Smoker Years of Tobacco use: 80 Packs/Tins Daily: 0.5 - Caffeine Use Caffeine Use: Reports: Coffee - Recreational Drug Use Recreational Drug Use: No ED ROS GENERAL - Review of Systems Review Of Systems: Comprehensive ROS is negative, except as noted in HPI. ED EXAM, GENERAL - Physical Exam Exam: See Below Exam Limited By: No Limitations General Appearance: Alert, WD/WN, No Apparent Distress Eye Exam: Bilateral Eye: Normal Inspection Nose: Normal Inspection, Normal Mucosa, No Blood Throat/Mouth: Normal Inspection Head: Atraumatic, Normocephalic Neck: Normal Inspection, Supple, Non-Tender, Full Range of Motion Respiratory/Chest: No Respiratory Distress, Lungs Clear, Normal Breath Sounds, No Accessory Muscle Use, Other (right anterolateral lower chest wall with a bruise and acute tenderness. No bony crepitus. ). No: Crackles, Rhonchi, Wheezing Cardiovascular: Normal Peripheral Pulses, Regular Rate, Rhythm, No Edema, No Gallop, No JVD, No Murmur, No Rub GI/Abdominal: Normal Bowel Sounds (Male) Exam: Deferred Rectal (Males) Exam: Deferred Back Exam: Normal Inspection, Full Range of Motion, NT Extremities: Normal Inspection, Normal Range of Motion, Non-Tender, Normal Capillary Refill, No Pedal Edema Neurological: Alert, Oriented, CN II-XII Intact, Normal Cognition, Normal Gait, Normal Reflexes, No Motor/Sensory Deficits Psychiatric: Normal Affect, Normal Mood Skin Exam: Warm, Dry, Intact, Normal Color, No Rash Course - Vital Signs Last Recorded V/S: Last Vital Signs Temp 97.1 F 12/08/19 16:09 Pulse 81 12/08/19 16:09 Resp 16 12/08/19 16:09 BP 111/65 12/08/19 16:09 Pulse Ox 98 12/08/19 16:09 - Orders/Labs/Meds Orders: Active Orders 24 hr Category Date Time Status Incentive Spirometry [RT Incentive Spirometry] [RC] Care 12/08/19 17:46 Ordered ASDIRECTED Ribs 2V wo Chest Rt [CR] Urgent Exams 12/08/19 17:07 Taken Lidocaine 5% Med 12/08/19 17:46 Once 15 gm TOP ONETIME ONE - Radiology Interpretation Free Text/Narrative:: [facility] [place] [facility] Final Radiology Report Call: [phone] assistance Online chat: [email or web address] Name: MADINA RICHARDS Age: 79Years M Date: 12/08/2019 SSN: -- : [id number] Study: XR RIBS 2 VIEWS RIGHT Requesting Physician: MAIN MARADIAGA Images: 5 Addl Studies: Provided Clinical History: Contrast: Contrast Medium: Contrast Amount: Contrast Method: Page 1 of 2 PROCEDURE INFORMATION: Exam: XR Right Ribs Exam date and time: 12/08/2019 5:12 PM Age: 79 years old Clinical indication: Other: Fall/right anterior/lateral rib pain TECHNIQUE: Imaging protocol: XR Right ribs. Views: 2 views. COMPARISON: CT - Chest Abdomen Pelvis w Cont 07/31/2017 11:52:19 AM FINDINGS: Bones/joints: There are deformities of what appear to be the right 10th and 11th ribs. Pattern suggests fracture. These ribs appear to been fractured in 2017. No definitive acute fracture is identified. Lungs: Lungs clear The lungs are moderately hyperinflated. Pleural space: No pneumothorax Heart/Mediastinum: No cardiomegaly. Vasculature: Tortuous aorta. Soft tissues: Normal. IMPRESSION: 1. Right 10th and 11th rib fractures are likely chronic. 2. No convincing acute findings. Thank you for allowing us to participate in the care of your patient. Dictated and Authenticated by: Sebastian Adams MD Departure - Departure Time of Disposition: 17:45 Disposition: Home, Self-Care 01 Condition: Good Clinical Impression: Right rib fracture Qualifiers: Encounter type: initial encounter Rib fracture type: multiple ribs Fracture type: closed Qualified Code(s): S22.41XA - Multiple fractures of ribs, right side, initial encounter for closed fracture - Discharge Information *PRESCRIPTION DRUG MONITORING PROGRAM REVIEWED*: Not Applicable *COPY OF PRESCRIPTION DRUG MONITORING REPORT IN PATIENT EUN: Not Applicable Instructions: Rib Fracture, [id number] Forms: ED Department Discharge Additional Instructions: RX: Hydrocodone/APAP 5/325 mg. *DO NOT DRIVE WHILE UNDER THE INFLUENCE OF THIS MEDICATION. Use incentive spirometer every 2 hours while awake. Follow up in clinic if needed. Sepsis Event Note - Evaluation Sepsis Screening Result: No Definite Risk - Focused Exam Vital Signs: Vital Signs Temp Pulse Resp BP Pulse Ox 12/08/19 16:09 97.1 F 81 16 111/65 98 Date Exam was Performed: 12/08/19 Time Exam was Performed: 17:47 - My Orders Last 24 Hours: My Active Orders 12/08/19 17:07 Ribs 2V wo Chest Rt [CR] Urgent 12/08/19 17:46 Incentive Spirometry [RT Incentive Spirometry] [RC] ASDIRECTED Lidocaine 5% 15 gm TOP ONETIME ONE - Assessment/Plan Last 24 Hours: My Active Orders 12/08/19 17:07 Ribs 2V wo Chest Rt [CR] Urgent 12/08/19 17:46 Incentive Spirometry [RT Incentive Spirometry] [RC] ASDIRECTED Lidocaine 5% 15 gm TOP ONETIME ONE
[2019-12-08] MEDS ORDERED: Lidocaine 5% Oint 35.44 GM Tube TOP ONE (17:46)
[2019-12-08] MEDS ORDERED: Acetaminophen/HYDROcodone 325-10 MG Tab ONE (17:53)
== END 2019-12-08 18:08 | disposition home or self-care (01) ==
LOC: DL.ED 15:17
DX: S22.41XA Multiple fractures of ribs, right side, initial encounter for closed fracture (principal); E78.00 Pure hypercholesterolemia, unspecified; I10 Essential (primary) hypertension; I25.10 Atherosclerotic heart disease of native coronary artery without angina pectoris; I25.2 Old myocardial infarction; J44.9 Chronic obstructive pulmonary disease, unspecified; F17.210 Nicotine dependence, cigarettes, uncomplicated; Z88.5 Allergy status to narcotic agent; Z88.6 Allergy status to analgesic agent; Z86.73 Personal history of transient ischemic attack (TIA), and cerebral infarction without residual deficits; Z79.02 Long term (current) use of antithrombotics/antiplatelets; Z79.899 Other long term (current) drug therapy; W19.XXXA Unspecified fall, initial encounter
CPT/HCPCS: 71100-RT; 94010; 99283-25; A9270-GY

== ENCOUNTER 2020-04-28 16:47 | Emergency (ER) | payer MEDICARE, BC ==
[~2020-04-28 16:47] MED LIST: Sodium Chloride 0.9% 10 ML Syringe FLUSH PRN
--- NOTE | 2020-04-28 17:00 | CT ---
PROCEDURE INFORMATION: Exam: CT Head Without Contrast Exam date and time: 04/28/2020 4:42 PM Age: 79 years old Clinical indication: Speech disturbance and other: Weakness; Additional info: Stroke TECHNIQUE: Imaging protocol: Computed tomography of the head without contrast. Radiation optimization: All CT scans at this facility use at least one of these dose optimization techniques: automated exposure control; mA and/or kV adjustment per patient size (includes targeted exams where dose is matched to clinical indication); or iterative reconstruction. Other technique: STROKE PROTOCOL was implemented. COMPARISON: CT Head wo Cont 02/12/2019 2:33 PM FINDINGS: Brain: No acute intracranial hemorrhage. Moderate small vessel ischemic changes again noted throughout supratentorial white matter. Old left lateral cerebellar infarct again noted. Old lacunar infarct body of left caudate nucleus. Question of a new area of loss of rand-white interface medial left occipital lobe, see images 38-39 coronal series 4. Cerebral ventricles: No ventriculomegaly. Bones/joints: Unremarkable. No acute fracture. Paranasal sinuses: Visualized sinuses are unremarkable. No fluid levels. Mastoid air cells: Visualized mastoid air cells are well aerated. Soft tissues: Unremarkable. IMPRESSION: No acute intracranial hemorrhage. Possible acute right occipital cortical infarct. MRI of the brain could further characterize. ASSESSMENT: ASPECTS ([facility] Stroke Program Early CT Score) is 10.
[2020-04-28] MEDS ORDERED: LORazepam 2 MG/ML SDV IVPUSH ONE (17:11)
[2020-04-28] MEDS ORDERED: LORazepam 2 MG/ML SDV ONE (17:11)
[2020-04-28 17:25] LABS: PTT,PARTIAL THROMBOPLSTIN TIME 23.1 SEC (22.0-34.0)
[2020-04-28 17:26] LABS: ANION GAP 10.7 mEq/L (7-13); CHLORIDE,CL 104 mmol/L (98-107); SODIUM,NA 137 mmol/L (136-145)
[2020-04-28 17:27] VITALS: BP 141/73; PULSE 110
--- NOTE | 2020-04-28 17:55 | EDM.PDOC ---
Scribed by Izabela Zhang 04/28/20 [id number] for Louisa Baptiste MD ED HPI GENERAL MEDICAL PROBLEM - General Chief Complaint: Neuro Symptoms/Deficits Stated Complaint: STROKE CODE Time Seen by Provider: 04/28/20 16:51 Source of Information: Reports: Patient, EMS, EMS Notes Reviewed, RN, RN Notes Reviewed History Limitations: Reports: No Limitations - History of Present Illness INITIAL COMMENTS - FREE TEXT/NARRATIVE: Patient presents to ED by [facility] states that this morning he felt nauseous. He did not vomit. He denies any shortness of breath. He was noted flaccid on the left with EMS. On arrival to the ER he is still flaccid on the left and hypoxic, up to 5 liters of oxygen. Onset: Today Duration: Constant Location: Reports: Generalized Severity: Severe Improves with: Reports: None Worsens with: Reports: None Associated Symptoms: Reports: No Other Symptoms - Related Data Allergies Allergy/AdvReac Type Severity Reaction Status Date / Time acetaminophen [From Percocet] Allergy Nausea and Verified 04/28/20 17:36 Vomiting oxycodone [From Percocet] Allergy Nausea and Verified 04/28/20 17:36 Vomiting Home Meds: Home Meds Clopidogrel [Plavix] 75 mg PO DAILY 07/22/13 [History] Omeprazole [Prilosec] 20 mg PO DAILY 07/22/13 [History] Pravastatin [Pravachol] 20 mg PO BEDTIME 07/22/13 [History] levETIRAcetam [Levetiracetam ER] 500 mg PO BID 02/12/19 [History] Past Medical History HEENT History: Reports: Hard of Hearing, Impaired Vision Cardiovascular History: Reports: CAD, High Cholesterol, Hypertension, [place] Respiratory History: Reports: COPD Gastrointestinal History: Reports: Diverticulosis Genitourinary History: Reports: BPH, UTI, Recurrent, Other (See Below) Other Genitourinary History: Erectile Dysfunctions Musculoskeletal History: Reports: Arthritis, Back Pain, Chronic Neurological History: Reports: CVA - Infectious Disease History Infectious Disease History: Reports: Measles, Mumps, Rubella - Past Surgical History HEENT Surgical History: Reports: None Cardiovascular Surgical History: Reports: None Respiratory Surgical History: Reports: None GI Surgical History: Reports: Colonoscopy Musculoskeletal Surgical History: Reports: Other (See Below) Other Musculoskeletal Surgeries/Procedures:: back surgery Social & Family History - Family History Cardiac: Reports: CAD, Heart Failure - Caffeine Use Caffeine Use: Reports: Coffee ED ROS GENERAL - Review of Systems Review Of Systems: Comprehensive ROS is negative, except as noted in HPI. ED EXAM, GENERAL - Physical Exam Exam: See Below General Appearance: Alert, No Apparent Distress Eye Exam: Bilateral Eye: Normal Inspection Ears: Normal External Exam Nose: Normal Inspection Throat/Mouth: Normal Inspection Head: Atraumatic, Normocephalic Neck: Normal Inspection, Supple Respiratory/Chest: Lungs Clear, Normal Breath Sounds, Accessory Muscle Use, Other (requiring 5L NC to maintain oxygen saturation) Cardiovascular: Normal Peripheral Pulses, Regular Rate, Rhythm, No Murmur GI/Abdominal: Normal Bowel Sounds, Soft, Non-Tender (Male) Exam: Deferred Rectal (Males) Exam: Deferred Neurological: Alert, Slow to Respond, Sensory/Motor Deficit (flaccid upper and lower left extremities) Skin Exam: Warm, Dry Course - Vital Signs Last Recorded V/S: Last Vital Signs Temp 96.1 F L 04/28/20 16:31 Pulse 110 H 04/28/20 16:31 Resp 12 04/28/20 16:31 BP 141/73 H 04/28/20 16:31 Pulse Ox 98 04/28/20 17:44 - Orders/Labs/Meds Orders: Active Orders 24 hr Category Date Time Status EKG Documentation Completion [RC] STAT Care 04/28/20 16:48 Active Peripheral IV Care [RC] . DIRECTED Care 04/28/20 16:40 Active LORazepam [Ativan] Med 04/28/20 17:11 Once 1 mg IVPUSH ONETIME ONE Sodium Chloride 0.9% [Saline Flush] Med 04/28/20 16:40 Active 10 ml FLUSH ASDIRECTED PRN Peripheral IV Insertion Adult [OM.PC] Stat Oth 04/28/20 16:39 Ordered Medication Orders Lorazepam (Ativan) 1 mg IVPUSH ONETIME ONE Stop: 04/28/20 17:12 Sodium Chloride (Saline Flush) 10 ml FLUSH ASDIRECTED PRN PRN Reason: Keep Vein Open Labs: Laboratory Tests 04/28/20 04/28/20 04/28/20 Range/Units 16:53 17:00 17:00 WBC 4.7 L (5.0-10.0) 10^3/uL RBC 3.55 L (4.6-6.2) 10^6/uL Hgb 11.9 L D (14.0-18.0) g/dL Hct 34.7 L (40.0-54.0) % MCV 97.7 (80-100) fL MCH 33.5 (27.0-34.0) pg MCHC 34.3 (33.0-35.0) g/dL Plt Count 135 L D (150-450) 10^3/uL Neut % (Auto) 65.0 (42.2-75.2) % Lymph % (Auto) 18.7 L (20.5-50.1) % [place] % (Auto) 15.1 H (2-8) % Eos % (Auto) 0.6 L (1.0-3.0) % Baso % (Auto) 0.6 (0.0-1.0) % PT (9.0-12.0) SEC INR (0.9-1.2) APTT (22.0-34.0) SEC Sodium 137 (136-145) mmol/L Potassium 4.7 (3.5-5.1) mmol/L Chloride 104 (98-107) mmol/L Carbon Dioxide 27 (21-32) mmol/L Anion Gap 10.7 (7-13) mEq/L BUN 17 (7-18) mg/dL Creatinine 1.32 H (0.70-1.30) mg/dL Est Cr Clr Drug Dosing 46.55 mL/min Estimated GFR (MDRD) 52 BUN/Creatinine Ratio 12.9 (No establ ref range) Glucose 111 H (74-99) mg/dL POC Glucose 109 (83-110) mg/dl Calcium 8.6 (8.5-10.1) mg/dL Total Bilirubin 0.3 (0.2-1.0) mg/dL AST 21 (15-37) U/L ALT 18 (16-63) U/L Alkaline Phosphatase 93 (46-116) U/L Troponin I (0.000-0.056) ng/mL Total Protein 6.8 (6.4-8.2) g/dL Albumin 3.2 L (3.4-5.0) g/dL Globulin 3.6 Albumin/Globulin Ratio 0.89 Ethyl Alcohol < 3 (0) mg/dL 04/28/20 04/28/20 Range/Units 17:00 17:00 WBC (5.0-10.0) 10^3/uL RBC (4.6-6.2) 10^6/uL Hgb (14.0-18.0) g/dL Hct (40.0-54.0) % MCV (80-100) fL MCH (27.0-34.0) pg MCHC (33.0-35.0) g/dL Plt Count (150-450) 10^3/uL Neut % (Auto) (42.2-75.2) % Lymph % (Auto) (20.5-50.1) % [place] % (Auto) (2-8) % Eos % (Auto) (1.0-3.0) % Baso % (Auto) (0.0-1.0) % PT 9.3 (9.0-12.0) SEC INR 1.0 (0.9-1.2) APTT 23.1 (22.0-34.0) SEC Sodium (136-145) mmol/L Potassium (3.5-5.1) mmol/L Chloride (98-107) mmol/L Carbon Dioxide (21-32) mmol/L Anion Gap (7-13) mEq/L BUN (7-18) mg/dL Creatinine (0.70-1.30) mg/dL Est Cr Clr Drug Dosing mL/min Estimated GFR (MDRD) BUN/Creatinine Ratio (No establ ref range) Glucose (74-99) mg/dL POC Glucose (83-110) mg/dl Calcium (8.5-10.1) mg/dL Total Bilirubin (0.2-1.0) mg/dL AST (15-37) U/L ALT (16-63) U/L Alkaline Phosphatase (46-116) U/L Troponin I < 0.017 (0.000-0.056) ng/mL Total Protein (6.4-8.2) g/dL Albumin (3.4-5.0) g/dL Globulin Albumin/Globulin Ratio Ethyl Alcohol (0) mg/dL Meds: Medications Generic Name Dose Route Start Last Admin Trade Name Freq PRN Reason Stop Dose Admin Lorazepam 1 mg 09/26/20 17:11 Ativan IVPUSH 04/28/20 17:12 ONETIME ONE Sodium Chloride 10 ml 04/28/20 16:40 Saline Flush FLUSH ASDIRECTED PRN Keep Vein Open Discontinued Medications Generic Name Dose Route Start Last Admin Trade Name Jimbo PRN Reason Stop Dose Admin Lorazepam Confirm 04/28/20 17:11 04/28/20 17:46 Ativan Administered 04/28/20 17:12 Not Given Dose 2 mg .ROUTE .STK-MED ONE Departure - Departure Time of Disposition: 17:51 Disposition: DC/Tfer to [facility] 02 Condition: Good Clinical Impression: Cerebrovascular accident (CVA) Qualifiers: CVA mechanism: unspecified Qualified Code(s): I63.9 - Cerebral infarction, unspecified - Discharge Information *PRESCRIPTION DRUG MONITORING PROGRAM REVIEWED*: Not Applicable *COPY OF PRESCRIPTION DRUG MONITORING REPORT IN PATIENT EUN: Not Applicable Forms: ED Department Discharge, Interfacility Transfer EMTALA Sepsis Event Note (ED) - Focused Exam Vital Signs: Vital Signs Temp Pulse Resp BP Pulse Ox Pulse Ox 04/28/20 17:44 98 04/28/20 16:31 96.1 F L 110 H 12 141/73 H 69 L - My Orders Last 24 Hours: My Active Orders 04/28/20 16:39 Peripheral IV Insertion Adult [OM.PC] Stat 04/28/20 16:40 Peripheral IV Care [RC] . DIRECTED Sodium Chloride 0.9% [Saline Flush] 10 ml FLUSH ASDIRECTED PRN 04/28/20 16:48 EKG Documentation Completion [RC] STAT 04/28/20 17:11 LORazepam [Ativan] 1 mg IVPUSH ONETIME ONE - Assessment/Plan Last 24 Hours: My Active Orders 04/28/20 16:39 Peripheral IV Insertion Adult [OM.PC] Stat 04/28/20 16:40 Peripheral IV Care [RC] . DIRECTED Sodium Chloride 0.9% [Saline Flush] 10 ml FLUSH ASDIRECTED PRN 04/28/20 16:48 EKG Documentation Completion [RC] STAT 04/28/20 17:11 LORazepam [Ativan] 1 mg IVPUSH ONETIME ONE I have read and agree with the documentation that has been completed regarding this visit. By signing this record, I attest that the documentation was completed in my physical presence and is an accurate record of the encounter.
== END 2020-04-28 18:13 ==
LOC: DL.ED 16:47
DX: I63.9 Cerebral infarction, unspecified (principal); E78.00 Pure hypercholesterolemia, unspecified; I25.10 Atherosclerotic heart disease of native coronary artery without angina pectoris; I10 Essential (primary) hypertension; I25.2 Old myocardial infarction; J44.9 Chronic obstructive pulmonary disease, unspecified; Z79.02 Long term (current) use of antithrombotics/antiplatelets; Z79.899 Other long term (current) drug therapy; Z88.6 Allergy status to analgesic agent; Z88.5 Allergy status to narcotic agent
CPT/HCPCS: 36415; 70450; 80053; 80307; 82962; 84484; 85025; 85610; 85730; 93005; 96374; 99285; J2060; 99284